=== PATIENT | female | born 1985 | race Hispanic/Latino ===

== ENCOUNTER 2019-12-01 09:57 | Emergency (ER) | payer SELFPAY ==
[2019-12-01 10:03] VITALS: BP 122/85
--- NOTE | 2019-12-01 11:04 | Emergency Department Report ---
ED ENT HPI - General Chief complaint: Dental/Oral Stated complaint: TOOTH PAIN/INFECTION Time Seen by Provider: 12/01/19 10:50 Source: patient Mode of arrival: Ambulatory Limitations: No Limitations - History of Present Illness Initial comments: This is a pleasant 34-year-old female presents the emergency department for evaluation of right upper dental pain over the past week. She states she broke her tooth and has been unable to see a dentist due to lack of insurance. She reports she tried putting some [id number] temporary crown on her teeth but is not having any relief in her symptoms. She states over the past 2 days she has noticed some increase in swelling or worsening pain. Now her pain is a 6 out of 10 in severity. She denies any known past medical history, current medication use or known allergies to medications. - Related Data Previous Rx's Medication Instructions Recorded Last Taken Type Penicillin V Potassium 500 mg PO Q6HR 10 Days #40 tablet 12/01/19 Unknown Rx traMADoL [Ultram 50 MG tab] 50 mg PO Q6HR PRN #12 tablet 12/01/19 Unknown Rx Allergies Allergy/AdvReac Type Severity Reaction Status Date / Time No Known Allergies Allergy Unverified 12/01/19 10:00 ED Dental HPI - General Chief complaint: Dental/Oral Stated complaint: TOOTH PAIN/INFECTION Time Seen by Provider: 12/01/19 10:50 Source: patient Mode of arrival: Ambulatory Limitations: No Limitations - Related Data Previous Rx's Medication Instructions Recorded Last Taken Type Penicillin V Potassium 500 mg PO Q6HR 10 Days #40 tablet 12/01/19 Unknown Rx traMADoL [Ultram 50 MG tab] 50 mg PO Q6HR PRN #12 tablet 12/01/19 Unknown Rx Allergies Allergy/AdvReac Type Severity Reaction Status Date / Time No Known Allergies Allergy Unverified 12/01/19 10:00 ED Review of Systems ROS: Stated complaint: TOOTH PAIN/INFECTION Other details as noted in HPI Comment: All other systems reviewed and negative Constitutional: denies: chills, fever Eyes: denies: eye pain, eye discharge, vision change ENT: ear pain, dental pain. denies: throat pain Respiratory: denies: cough, shortness of breath, wheezing Cardiovascular: denies: chest pain, palpitations Endocrine: no symptoms reported Gastrointestinal: denies: abdominal pain, nausea, diarrhea Genitourinary: denies: urgency, dysuria, discharge Musculoskeletal: denies: back pain, joint swelling, arthralgia Skin: denies: rash, lesions Neurological: denies: headache, weakness, paresthesias Psychiatric: denies: anxiety, depression Hematological/Lymphatic: denies: easy bleeding, easy bruising ED Past Medical Hx - Past Medical History Previous Medical History?: No - Surgical History Past Surgical History?: Yes Additional Surgical History: cyst removal - Social History Smoking Status: Current Every Day Smoker Substance Use Type: None - Medications Home Medications: Home Medications Medication Instructions Recorded Confirmed Last Taken Type Penicillin V Potassium 500 mg PO Q6HR 10 Days #40 tablet 12/01/19 Unknown Rx traMADoL [Ultram 50 MG tab] 50 mg PO Q6HR PRN #12 tablet 12/01/19 Unknown Rx ED Physical Exam - General Limitations: No Limitations General appearance: alert, in no apparent distress - Head Head exam: Present: atraumatic, normocephalic - Eye Eye exam: Present: normal appearance, PERRL, EOMI Pupils: Present: normal accommodation - ENT ENT exam: Present: normal exam, mucous membranes moist, other (there is a fractured tooth to the third molar #1, no peritonsillar bulging, retropharyngeal bulging or tongue elevation. No dysphonia or drooling. No trismus.) - Neck Neck exam: Present: normal inspection, full ROM. Absent: tenderness, meningismus - Respiratory Respiratory exam: Present: normal lung sounds bilaterally. Absent: respiratory distress, wheezes, rales, rhonchi, stridor - Cardiovascular Cardiovascular Exam: Present: regular rate, normal rhythm, normal heart sounds. Absent: systolic murmur, diastolic murmur, rubs, gallop - GI/Abdominal GI/Abdominal exam: Present: soft, normal bowel sounds. Absent: distended, tenderness, guarding, rebound, rigid - Extremities Exam Extremities exam: Present: normal inspection, full ROM. Absent: tenderness - Back Exam Back exam: Present: normal inspection, full ROM. Absent: tenderness, CVA tenderness (R), CVA tenderness (L) - Neurological Exam Neurological exam: Present: alert, oriented X3 - Psychiatric Psychiatric exam: Present: normal affect, normal mood - Skin Skin exam: Present: warm, dry, intact, normal color. Absent: rash ED Course Vital Signs 12/01/19 10:01 Temperature 97.9 F Pulse Rate 52 L Respiratory 18 Rate Blood Pressure 122/85 O2 Sat by Pulse 100 Oximetry ED Medical Decision Making - Medical Decision Making Patient had dental caries and fractured. She reports mild swelling although I do not see an obvious abscess. I will cover the patient with antibiotics and pain medication and recommended close follow-up with dental clinic. She is given a handout with dental clinics in the area that will accept her without insurance. Recommend return emergently for changing or worsening symptoms. She replies understanding of the diagnosis, treatment plan and follow-up instructions and all of her questions were answered. - Differential Diagnosis dental abscess, dental caries, dental fracture Critical care attestation.: If time is entered above; I have spent that time in minutes in the direct care of this critically ill patient, excluding procedure time. ED Disposition Clinical Impression: Pain due to dental caries Disposition: - TO HOME OR SELFCARE Is pt being admited?: No Condition: Stable Instructions: Toothache (ED) Prescriptions: Penicillin V Potassium 500 mg PO Q6HR 10 Days #40 tablet traMADoL [Ultram 50 MG tab] 50 mg PO Q6HR PRN #12 tablet PRN Reason: Pain Referrals: PRIMARY CARE, [Primary Care Provider] - 3-5 Days Time of Disposition: 11:04
[2019-12-01] MEDS ORDERED: ACETAMINOPHEN W/CODEINE 300-30 MG TAB PO ONE (11:20)
== END 2019-12-01 11:34 | disposition home or self-care (01) ==
LOC: ED 09:57
DX: K02.9 Dental caries, unspecified (principal); F17.200 Nicotine dependence, unspecified, uncomplicated; Z98.890 Other specified postprocedural states; Z79.899 Other long term (current) drug therapy

== ENCOUNTER 2020-09-28 16:14 | Emergency (ER) | payer SELFPAY ==
[2020-09-28] MEDS ORDERED: MORPHINE 4 MG/1 ML INJ IV ONE (16:22)
[2020-09-28] MEDS ORDERED: KETOROLAC 30 MG/1 ML INJ IM ONE (16:22)
--- NOTE | 2020-09-28 16:27 | Event Note ---
ED Screening Note Date of service: 09/28/20 Time: 16:23 ED Screening Note: Patient complains of severe lower abdominal pain starting today after taking an pill States some vaginal bleeding Patient does appear very uncomfortable This initial assessment/diagnostic orders/clinical plan/treatment(s) is/are subject to change based on patients health status, clinical progression and re- assessment by fellow clinical providers in the ED. Further treatment and workup at subsequent clinical providers discretion. Patient/guardian urged not to elope from the ED as their condition may be serious if not clinically assessed and managed. Initial orders include: Meds
[2020-09-28] MEDS ORDERED: ONDANSETRON 4 MG ODT TAB PO ONE (16:30)
[2020-09-28 16:54] LABS: Basophils # (Auto) 0.2 K/mm3 (0.0-0.1); Basophils % (Auto) 1.2 % (0.0-1.8); Eosinophils % (Auto) 0.2 % (0.0-4.3); Hematocrit 39.7 % (30.3-42.9); Hemoglobin 13.4 gm/dl (10.1-14.3); Lymphocytes % (Auto) 7.8 % (13.4-35.0); Mean Corpuscular HGB Conc 34 % (30-34); Mean Corpuscular Volume 99 fl (79-97); Monocytes # (Auto) 0.7 K/mm3 (0.0-0.8); Monocytes % (Auto) 5.2 % (0.0-7.3); Platelet Count 236 K/mm3 (140-440); Red Blood Count 4.02 M/mm3 (3.65-5.03); Red Cell Distribution Width 12.4 % (13.2-15.2)
[2020-09-28 17:10] LABS: BUN/Creatinine Ratio 37; Blood Urea Nitrogen 33 mg/dL (7-17); Calcium 8.8 mg/dL (8.4-10.2); Hemolysis Index 8
--- NOTE | 2020-09-28 17:57 | Ultrasound Report ---
ULTRASOUND OBSTETRIC INDICATION / CLINICAL INFORMATION: pain after pill. Clinical Gestational Age (GA) in weeks, days: None provided TECHNIQUE: Transabdominal. COMPARISON: None available. FINDINGS: GESTATIONAL SAC: No intrauterine gestational sac. YOLK SAC: Not visualized. EMBRYO/FETUS: Not visualized. Endometrial stripe appears within normal limits. ADNEXA: 5 cm left ovarian cyst. No adnexal mass. FREE FLUID: None. ADDITIONAL FINDINGS: None. IMPRESSION: 1. No intrauterine . 2. 5 cm left ovarian cyst. No adnexal mass or free fluid. Signer Name: Calvin Ford MD Signed: 09/28/2020 5:56 PM Workstation Name: [id number]
== END 2020-09-28 18:28 | disposition left against medical advice (07) ==
LOC: ED 16:14
DX: O26.891 Other specified pregnancy related conditions, first trimester (principal); Z53.21 Procedure and treatment not carried out due to patient leaving prior to being seen by health care provider
CPT/HCPCS: 36415; 76801; 80048; 84702; 85025; J1885; J2270; Q0162